=== PATIENT | female | born 1970 | race African-American/Black ===

== ENCOUNTER 2024-03-08 00:22 | Inpatient (IN) | payer MEDICAID ==
[~2024-03-08] VITALS: Ht 162.6 cm; Wt 89.6 kg
[2024-03-08 01:10] LABS: BASOPHILS % 0.6 % (0.0-2.0); EOSINOPHILS % 6.8 % (0.0-5.0); HEMATOCRIT. 43.5 % (36.0-48.0); HEMOGLOBIN. 14.6 g/dL (12.0-16.0); MEAN CORPUSCULAR HEMOGLOBIN 31.3 pg (28.0-32.0); MEAN CORPUSCULAR HGB CONC 33.6 g/dL (31.0-37.0); MEAN CORPUSCULAR VOLUME 93.1 fL (81.0-99.0); MEAN PLATELET VOLUME 9.6 fl (7.4-10.4); NEUTROPHILS % 57.6 % (40.0-76.0); PLATELET 233 x1000/uL (130-400); RED BLOOD CELL COUNT 4.67 mill/uL (4.2-5.4); RED CELL DISTRIBUTION WIDTH 14.1 % (11.6-14.6); WHITE BLOOD COUNT 6.1 x1000/uL (4.5-11.0)
[2024-03-08 01:15] LABS: CHLORIDE 107 mEq/L (98-107); SODIUM 141 mEq/L (136-145)
[2024-03-08 01:16] LABS: CARBON DIOXIDE 27 mEq/L (21-32)
[2024-03-08 01:17] LABS: CALCIUM 10.2 mg/dL (8.7-10.4)
[2024-03-08 01:21] LABS: CREATININE 0.9 mg/dL (0.6-1.0)
[2024-03-08 01:22] LABS: GLUCOSE 116 mg/dL (70-105); UREA NITROGEN BLOOD 14 mg/dL (9-23)
[2024-03-08 01:24] LABS: INR 0.9; PARTIAL THROMBOPLASTIN TIME 24.5 sec (23.4-31.0); PROTHROMBIN TIME 10.2 sec (9.6-11.0); TROPONIN I HIGH SENSITIVITY 7 ng/L (3.0-34)
[2024-03-08 01:26] LABS: ETHANOL BLOOD < 10 mg/dL (<10)
[2024-03-08] MEDS: ACETAMINOPHEN 325MG TABLET PO ONE (02:26)
[2024-03-08] MEDS: ACETAMINOPHEN 325MG TABLET PO NR (02:33)
[2024-03-08 03:04] LABS: *AMPHETAMINES SCREEN URINE NEGATIVE (NEGATIVE); *BARBITURATES SCREEN URINE NEGATIVE (NEGATIVE); *BENZODIAZEPINES SCREEN URINE NEGATIVE (NEGATIVE); *COCAINE SCREEN URINE NEGATIVE (NEGATIVE); METHADONE URINE SCREEN NEGATIVE (NEGATIVE)
[2024-03-08 03:05] LABS: CANNABINOID URINE SCREEN NEGATIVE (NEGATIVE); ECSTASY MDMA SCREEN URINE NEGATIVE (NEGATIVE); OPIATES URINE SCREEN NEGATIVE (NEGATIVE); PHENCYCLIDINE URINE SCREEN NEGATIVE (NEGATIVE)
[2024-03-08] MEDS ORDERED: GUAIFENESIN 200MG/10ML SUGAR FREE UDC PO PRN (05:30)
[2024-03-08] MEDS ORDERED: ONDANSETRON HCL 4MG/2ML INJ IV PRN (05:30)
[2024-03-08] MEDS ORDERED: ACETAMINOPHEN 325MG TABLET PO PRN ×2 (05:30)
[2024-03-08] MEDS ORDERED: IPRATROPIUM/ALBUTEROL 0.5-3(2.5)MG/3ML NEB HHN PRN (05:30)
[2024-03-08] MEDS ORDERED: DOCUSATE SODIUM 100MG CAPSULE PO PRN (05:30)
[2024-03-08] MEDS: CLONIDINE 0.1MG TABLET PO PRN (06:17)
[2024-03-08 06:52] LABS: CHLORIDE 109 mEq/L (98-107); POTASSIUM 4.2 mEq/L (3.5-5.1); SODIUM 141 mEq/L (136-145)
[2024-03-08 06:53] LABS: CALCIUM 10.3 mg/dL (8.7-10.4); CARBON DIOXIDE 28 mEq/L (21-32)
[2024-03-08 06:54] LABS: BASOPHILS % 0.8 % (0.0-2.0); EOSINOPHILS % 6.2 % (0.0-5.0); HEMATOCRIT. 41.3 % (36.0-48.0); HEMOGLOBIN. 13.8 g/dL (12.0-16.0); LYMPHOCYTES % 26.4 % (20.0-50.0); MEAN CORPUSCULAR HEMOGLOBIN 31.2 pg (28.0-32.0); MEAN CORPUSCULAR HGB CONC 33.5 g/dL (31.0-37.0); MEAN PLATELET VOLUME 9.5 fl (7.4-10.4); MONOCYTES % 8.5 % (2.0-8.0); NEUTROPHILS % 58.1 % (40.0-76.0); PLATELET 232 x1000/uL (130-400); RED BLOOD CELL COUNT 4.44 mill/uL (4.2-5.4); RED CELL DISTRIBUTION WIDTH 13.9 % (11.6-14.6); WHITE BLOOD COUNT 5.9 x1000/uL (4.5-11.0)
[2024-03-08 06:58] LABS: CREATININE 0.9 mg/dL (0.6-1.0); GLUCOSE 122 mg/dL (70-105); UREA NITROGEN BLOOD 13 mg/dL (9-23)
[2024-03-08 06:59] LABS: TROPONIN I HIGH SENSITIVITY 7 ng/L (3.0-34)
[2024-03-08] MEDS: IPRATROPIUM/ALBUTEROL 0.5-3(2.5)MG/3ML NEB HHN SCH (08:48)
[2024-03-08 08:49] VITALS: PULSE 83; RESP 18; O2SAT 97
[2024-03-08] MEDS: ASPIRIN 81MG EC TABLET PO SCH (09:55)
[2024-03-08] MEDS: ENOXAPARIN 40MG/0.4ML SYR SUBCUT SCH (10:14)
[2024-03-08 16:45] VITALS: BP 121/75; PULSE 65; RESP 17; TEMP 36.83628; O2SAT 100
[2024-03-08 17:13] VITALS: PULSE 109; RESP 19; O2SAT 100
[2024-03-08 18:19] VITALS: BP 121/75; PULSE 65; RESP 17; TEMP 36.8628
[2024-03-08 20:00] VITALS: BP 134/100; PULSE 75; RESP 15; TEMP 36.78072; O2SAT 100
[2024-03-08] MEDS: FAMOTIDINE 20MG TABLET PO SCH (20:47)
[2024-03-08 23:27] LABS: CLARITY URINE CLEAR (CLEAR); COLOR URINE YELLOW (YELLOW); GLUCOSE URINE NEGATIVE (NEGATIVE); KETONES URINE NEGATIVE (NEGATIVE); LEUKOCYTE ESTERASE URINE NEGATIVE (NEGATIVE); NITRITE URINE NEGATIVE (NEGATIVE); OCCULT BLOOD URINE NEGATIVE (NEGATIVE); PROTEIN URINE NEGATIVE (NEGATIVE); SPECIFIC GRAVITY URINE 1.018 (1.005-1.030); UROBILINOGEN URINE 0.2 E.U./dL (0.2-1.0)
[2024-03-09] VITALS: BP 120/66; PULSE 63; RESP 12; TEMP 36.89184; O2SAT 100
[2024-03-09 00:13] VITALS: PULSE 68; RESP 16; O2SAT 100
[2024-03-09 04:00] VITALS: BP 147/76; PULSE 78; RESP 17; TEMP 36.89184; O2SAT 100
[2024-03-09 06:32] LABS: BASOPHILS % 0.9 % (0.0-2.0); EOSINOPHILS % 6.4 % (0.0-5.0); HEMATOCRIT. 41.1 % (36.0-48.0); HEMOGLOBIN. 13.3 g/dL (12.0-16.0); LYMPHOCYTES % 31.4 % (20.0-50.0); MEAN CORPUSCULAR HEMOGLOBIN 30.4 pg (28.0-32.0); MEAN CORPUSCULAR HGB CONC 32.5 g/dL (31.0-37.0); MEAN CORPUSCULAR VOLUME 93.5 fL (81.0-99.0); MEAN PLATELET VOLUME 9.9 fl (7.4-10.4); MONOCYTES % 8.6 % (2.0-8.0); NEUTROPHILS % 52.7 % (40.0-76.0); PLATELET 229 x1000/uL (130-400); RED BLOOD CELL COUNT 4.39 mill/uL (4.2-5.4); RED CELL DISTRIBUTION WIDTH 13.9 % (11.6-14.6); WHITE BLOOD COUNT 5.4 x1000/uL (4.5-11.0)
[2024-03-09 06:38] LABS: CHLORIDE 107 mEq/L (98-107); POTASSIUM 3.8 mEq/L (3.5-5.1); SODIUM 140 mEq/L (136-145)
[2024-03-09 06:39] LABS: CALCIUM 10.2 mg/dL (8.7-10.4); CARBON DIOXIDE 26 mEq/L (21-32)
[2024-03-09 06:41] LABS: TROPONIN I HIGH SENSITIVITY 8 ng/L (3.0-34)
[2024-03-09 06:44] LABS: CREATININE 0.8 mg/dL (0.6-1.0); GLUCOSE 107 mg/dL (70-105); TRIGLYCERIDE 143 mg/dL (0-150); UREA NITROGEN BLOOD 13 mg/dL (9-23)
[2024-03-09 06:45] LABS: LDL CHOLESTEROL 99 mg/dL (5-100); T4 FREE 1.45 ng/dL (0.89-1.76); THYROID STIMULATING HORMONE 1.73 uIU/mL (0.55-4.78)
[2024-03-09 06:46] LABS: CHOLESTEROL 162 mg/dL (<200); HDL CHOLESTEROL 38 mg/dL (>65)
[2024-03-09 08:00] VITALS: BP 125/66; PULSE 71; RESP 19; TEMP 36.78072; O2SAT 100
[2024-03-09] MEDS ORDERED: AMLO5TAB4 PO (08:18)
[2024-03-09] MEDS: LACTULOSE 20G/30ML UDC PO NR (10:41)
[2024-03-09] MEDS ORDERED: ACET-2708 MT (11:04)
[2024-03-09 11:23] VITALS: BP 125/66; PULSE 71; PULSE 93; TEMP 98.5; O2SAT 99
[2024-03-09 12:00] VITALS: BP 127/85; PULSE 95; RESP 19; TEMP 36.55848; O2SAT 100
[2024-03-09] MEDS ORDERED: POLY17PO3 MT (12:58)
== END 2024-03-09 16:00 | disposition home or self-care (01) | DRG 203 ==
LOC: ER 00:22 → 5WST 02:51 → EDBEDREQTM 04:50 → EDBEDREQ 04:50 → 3WST 16:47
PROVIDERS: ADMIT Hospitalist; ATTEND Hospitalist
DX: M94.0 Chondrocostal junction syndrome [Tietze] (principal); I10 Essential (primary) hypertension; R05.3 Chronic cough; Z88.8 Allergy status to other drugs, medicaments and biological substances
CPT/HCPCS: 36415; 71045; 80048; 80061; 80305; 80320; 81003; 83880; 84439; 84443; 84484; 85025; 93005; 94640; 99285; J1650; G0480